=== PATIENT | male | born 1955 | race Caucasian/White ===

== ENCOUNTER 2018-03-15 10:32 | Emergency (ER) | payer OTHER, BC ==
[2018-03-15 10:47] VITALS: TEMP 98.6; BMI 29.5
[2018-03-15 11:26] LABS: BASO % 0.2 % (0-2.0); EOS % 1.4 % (0-4.5); HEMATOCRIT 45.6 % (35.4-49); HEMOGLOBIN 15.7 GM/dl (11.7-16.9); LYMPH % 17.9 % (8-40); MCH 33.3 pg (25.7-33.7); MCHC 34.4 g/dl (32.0-35.9); MEAN PLT VOLUME 7.6 fl (7.5-11.1); NEUT % 71.5 % (42.8-82.8); PLATELET COUNT 266 K/MM3 (134-434); RDW 12.7 % (11.9-15.9); WHITE BLOOD COUNT 5.9 K/mm3 (4.0-10.8)
[2018-03-15 11:31] LABS: ALK PHOS 51 U/L (32-92); ANION GAP 8 (8-16); BILIRUBIN,TOTAL 0.9 mg/dl (0.2-1.0); BLOOD UREA NITROGEN 20 mg/dl (7-18); CALCIUM 9.6 mg/dl (8.4-10.2); CHLORIDE 103 mmol/L (98-107); CO2 23 mmol/L (22-28); CREATININE 0.8 mg/dl (0.6-1.3); GLUCOSE,RANDOM 177 mg/dl (74-106); POTASSIUM 4.9 mmol/L (3.5-5.1); SGOT/AST 19 U/L (10-42); SGPT/ALT 20 U/L (10-40); SODIUM 134 mmol/L (136-145); TOT PROT 6.9 g/dl (6.4-8.3)
--- NOTE | 2018-03-15 13:06 | PDOC ---
History of Present Illness - General Chief Complaint: Chest Pain Stated Complaint: chets pressure,palpitaions,sob,cold sweats x 1 day Time Seen by Provider: 03/15/18 10:34 History Source: Patient Exam Limitations: No Limitations - History of Present Illness Initial Comments: 03/15/18 13:02 CHIEF COMPLAINT: "Yesterday I had chest pain and palpitations." HISTORY OF PRESENT ILLNESS: 62-year-old man with a history of known coronary artery disease status post WA with 12 coronary stents. Patient is followed by Dr. 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 The test results were negative and patient continues on medical management. He gets intermittent chest discomfort as well as palpitations. 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 Asif in the coming weeks. This was scheduled to evaluate his palpitations. Patient presents today with report of having had an episode of chest discomfort and diaphoresis yesterday. He also had some transient palpitations yesterday. He states he has fairly chronic chest discomfort but that is not a change from his prior pattern. He denies syncope. He denies dizziness. He denies diaphoresis today. REVIEW OF SYSTEMS: GENERAL/CONSTITUTIONAL: No fever or chills. No weakness. No weight change. HEAD, EYES, EARS, NOSE AND THROAT: No change in vision. No ear pain or discharge. No sore throat. CARDIOVASCULAR: Positive chest pain, no shortness of breath. Positive palpitations yesterday. RESPIRATORY: No cough, wheezing, or hemoptysis. GASTROINTESTINAL: No nausea, vomiting, diarrhea or constipation. No rectal bleeding. GENITOURINARY: No dysuria, frequency, or change in urination. MUSCULOSKELETAL: No joint or muscle swelling or pain. No neck or back pain. SKIN AND BREASTS: No rash or easy bruising. NEUROLOGIC: No headache, vertigo, loss of consciousness, or loss of sensation. PSYCHIATRIC: No depression or anxiety. ENDOCRINE: No increased thirst. No abnormal weight change. HEMATOLOGIC/LYMPHATIC: No anemia, easy bleeding, or history of blood clots. ALLERGIC/IMMUNOLOGIC: No hives or skin allergy. No latex allergy. Past History - Past Medical History Allergies/Adverse Reactions: Allergies Allergy/AdvReac Type Severity Reaction Status Date / Time amoxicillin [Amoxicillin] Allergy Intermediate Hives Verified 03/15/18 10:34 minocycline [Minocycline] Allergy Intermediate Hives Verified 03/15/18 10:34 Penicillins Allergy Intermediate Hives Verified 03/15/18 10:34 Home Medications: Ambulatory Orders Cholecalciferol (Vitamin D3) [Vitamin D3] 0 unit PO DAILY capsule 11/11/13 Aspirin [Aspirin EC] 81 mg PO DAILY 07/09/14 Clopidogrel Bisulfate [Plavix -] 75 mg PO DAILY 07/09/14 Midamor 5 mg PO DAILY 07/09/14 Potassium Citrate [Urocit-K 10 (NF)] 1,080 mg PO BID 07/09/14 Isosorbide Mononitrate [Imdur -] 30 mg PO DAILY 03/13/16 Glipizide 5 mg PO BID 03/15/18 Insulin Glargine,Hum.rec.anlog [Lantus] 35 unit SQ DAILY 03/15/18 Metformin HCl [Glucophage] 1,000 mg PO DAILY 03/15/18 Ranolazine [Ranexa] 1,000 mg PO BID 03/15/18 Anemia: No Asthma: No Cancer: No Cardiac Disorders: Yes (CAD-DX 2001, [place] X 2"SMALL", 12 coronary stents) CVA: No COPD: No CHF: No Diabetes: Yes (DX 2003-IDDM) GI Disorders: No Disorders: Yes (H/O KIDNEY STONES) HTN: Yes (DX 2001) Hypercholesterolemia: Yes (DX 2001) Kidney Stones: Yes Liver Disease: No Seizures: No Thyroid Disease: No - Surgical History Abdominal Surgery: No Appendectomy: No Cardiac Surgery: Yes (CARDIAC STENTS times [id number]) Cholecystectomy: No Lung Surgery: No Neurologic Surgery: No Orthopedic Surgery: Yes (R KNEE ARTHROSCOPY-2003) - Family Disease History Family Disease History: Heart Disease: Mother - Immunization History Immunization Up to Date: Yes - Suicide/Smoking/Psychosocial Hx Smoking Status: Yes Smoking History: Never smoked Have you smoked in the past 12 months: No Number of Cigarettes Smoked Daily: 0 Cigars Per Day: 1 'Breaking Loose' booklet given: 03/15/18 Hx Alcohol Use: Yes (OCCASIONAL) Drug/Substance Use Hx: No Substance Use Type: None Hx Substance Use Treatment: No *Physical Exam - Vital Signs Last Vital Signs Temp Pulse Resp BP Pulse Ox 98.6 F 78 18 122/78 97 03/15/18 10:33 03/15/18 10:33 03/15/18 10:33 03/15/18 10:33 03/15/18 10:33 - Physical Exam Comments: 03/15/18 13:06 GENERAL: The patient is awake, alert, and fully oriented, in no acute distress. HEAD: Normal with no signs of trauma. EYES: Pupils equal, round and reactive to light, extraocular movements intact, sclera anicteric, conjunctiva clear. ENT: Ears normal, nares patent, oropharynx clear without exudates. Moist mucous membranes. NECK: Normal range of motion, supple without lymphadenopathy, JVD, or masses. LUNGS: Breath sounds equal, clear to auscultation bilaterally. No wheezes, and no crackles. HEART: Regular rate and rhythm, normal S1 and S2 without murmur, rub or gallop. No irregular beats. ABDOMEN: Soft, nontender, normoactive bowel sounds. No guarding, no rebound. No masses. EXTREMITIES: Normal range of motion, no edema. No clubbing or cyanosis. No cords, erythema, or tenderness. NEUROLOGICAL: Cranial nerves II through XII grossly intact. Normal speech, normal gait. PSYCH: Normal mood, normal affect. SKIN: Warm, Dry, normal turgor, no rashes or lesions noted. Heart Score/ECG Review - ECG Impressions Comment:: 03/15/18 13:06 EKG #1) normal sinus rhythm at a rate of 80 bpm. The axis is normal. The intervals are normal. There is borderline J-point elevation throughout most leads. In comparison with prior EKG from 08/30/2008, there is no change. EKG #2) the rhythm is normal sinus rhythm at a rate of 74 bpm. The axis is normal. The intervals are normal. There are no acute ST elevations or depressions. There is mild J-point elevation in almost all of the leads. There is no change from prior tracings. Impression: Normal 12-lead EKG 2 ED Treatment Course - LABORATORY CBC & Chemistry Diagram: 03/15/18 11:07 03/15/18 11:07 - ADDITIONAL ORDERS Additional order review: Laboratory Results 03/15/18 03/15/18 11:07 11:07 Sodium 134 L Potassium 4.9 Chloride 103 Carbon Dioxide 23 Anion Gap 8 BUN 20 H D Creatinine 0.8 Creat Clearance w eGFR > 60 Random Glucose 177 H D Calcium 9.6 Total Bilirubin 0.9 D AST 19 ALT 20 Alkaline Phosphatase 51 Troponin I < 0.03 Total Protein 6.9 Albumin 4.0 03/15/18 11:07 RBC 4.70 MCV 97.0 H MCHC 34.4 RDW 12.7 MPV 7.6 Neutrophils % 71.5 Lymphocytes % 17.9 Monocytes % 9.0 Eosinophils % 1.4 Basophils % 0.2 - RADIOLOGY Radiology Studies Ordered: Category Date Time Status CHEST X-RAY PORTABLE* [RAD] Stat Radiology 03/15/18 10:54 Completed Medical Decision Making - Medical Decision Making 03/15/18 14:43 62-year-old man with a history of known coronary artery disease status post WA and multiple stents. Patient is followed very closely by his feather baler Dr. Christopher Asif at [facility]. He has frequent symptoms and subsequently has frequent evaluations. Dr Asif recently did a nuclear stress test on him last month which was negative. Patient had some symptoms yesterday and decided to come to the ED today for evaluation of some chest discomfort and diaphoresis with palpitations. His physical examination is unremarkable with clear lungs and normal heart tones. His rhythm has been regular on examination, on 2 EKGs, and on the continuous bedside phototypesetting equipment monitor. 2 sets of EKG showed no ischemic changes. 2 sets of cardiac enzymes were also normal. Patient remains asymptomatic. Given the chronicity of his intermittent symptoms, and the normal ED evaluation, patient will referred back to his primary feather baler Dr. Christopher Asif. He was advised if he has any increasing symptoms he should return immediately to the emergency department for reevaluation. He is already scheduled to contact [facility] for Holter monitoring tomorrow. Impression: Nonspecific chest pain and palpitations, negative EKG and enzymes/ cardiac workup. Patient is stable for discharge with follow-up at [facility]. *DC/Admit/Observation/Transfer Diagnosis at time of Disposition: Chest pain Qualifiers: Chest pain type: unspecified Qualified Code(s): R07.9 - Chest pain, unspecified - Discharge Dispostion Disposition: HOME Condition at time of disposition: Stable Decision to Admit order: No - Referrals - Patient Instructions Printed Discharge Instructions: DI for Chest Pain Additional Instructions: You were evaluated today for chest pain and palpitations. Your physical examination was normal. 2 EKGs were normal. 2 sets of cardiac enzymes/ troponins, were normal. Your chest x-ray was also normal. It is unclear the cause of the chest pain. You should follow-up tomorrow to schedule your cardiac tests at [facility] as recommended by Dr. Asif. You should also call Dr. Asif to advise him of your ER evaluation and to arrange for follow-up. If you do develop further symptoms, return immediately to the emergency department for repeat evaluation. - Post Discharge Activity
[2018-03-15 13:39] VITALS: BP 104/67; PULSE 71
--- NOTE | 2018-03-15 14:43 | EKG ---
Test Reason : Blood Pressure : / mmHG Vent. Rate : 074 BPM Atrial Rate : 074 BPM P-R Int : 132 ms QRS Dur : 078 ms QT Int : 384 ms P-R-T Axes : 017 015 020 degrees QTc Int : 426 ms NORMAL SINUS RHYTHM NORMAL ECG WHEN COMPARED WITH ECG OF 15-MAR-2018 10:35, NO SIGNIFICANT CHANGE WAS FOUND Confirmed by MD Sandoval Daniel ([id number]) on 03/15/2018 2:43:12 PM Referred By: LEONIDAS ALFONSO Confirmed By:Wilver Sandoval MD
--- NOTE | 2018-03-15 14:44 | EKG ---
Test Reason : Blood Pressure : / mmHG Vent. Rate : 080 BPM Atrial Rate : 080 BPM P-R Int : 136 ms QRS Dur : 074 ms QT Int : 364 ms P-R-T Axes : 017 012 010 degrees QTc Int : 419 ms NORMAL SINUS RHYTHM NORMAL ECG WHEN COMPARED WITH ECG OF 30-AUG-2008 20:05, NO SIGNIFICANT CHANGE WAS FOUND Confirmed by MD Sandoval Daniel ([id number]) on 03/15/2018 2:44:25 PM Referred By: LEONIDAS ALFONSO Confirmed By:Wilver Sandoval MD
== END 2018-03-15 14:53 | disposition home or self-care (01) ==
LOC: FER 10:32
DX: R07.9 Chest pain, unspecified (principal); Z95.5 Presence of coronary angioplasty implant and graft; I25.2 Old myocardial infarction; I25.10 Atherosclerotic heart disease of native coronary artery without angina pectoris
CPT/HCPCS: 36415; 71045-TC-FY; 80053; 82550; 84484; 85025; 93005; 99283-25

== ENCOUNTER 2019-07-28 09:07 | Emergency (ER) | payer OTHER, BC ==
[2019-07-28 09:10] VITALS: BMI 29.5
--- NOTE | 2019-07-28 09:12 | PDOC ---
History of Present Illness - General Chief Complaint: Pain, Acute Stated Complaint: LOW BACK PAIN Time Seen by Provider: 07/28/19 09:10 - History of Present Illness Initial Comments: Mr. Lind is a 64 y/o male with PMH of CAD s/p 12 stents, DM, lumbar disc hernia , nephrolithiasis presenting today with 1 mo Hx of worsening pressure-like pain in the right hip radiating down the lateral leg and anterior right foot. Pain is worse with standing and movement. Has been unable to sleep due to pain. Saw PCP last week for the pain, was given steroids, which helped initially but has not helped the past two days. Is also taking acetaminophen for pain relief. Denies fever, recent trauma/falls, back pain, urinary/bowel complaints. Also endorses tingling in bilateral hands. Hx of lumbar disc hernia - resolved with steroid injections MRI (2012) - no evidence of hernia or stenosis Surgeries: PCI x 12; kidney stones PCP Dr. Fisher Past History - Past Medical History Allergies/Adverse Reactions: Allergies Allergy/AdvReac Type Severity Reaction Status Date / Time amoxicillin [Amoxicillin] Allergy Intermediate Hives Verified 07/28/19 09:08 minocycline [Minocycline] Allergy Intermediate Hives Verified 07/28/19 09:08 Penicillins Allergy Intermediate Hives Verified 07/28/19 09:08 Home Medications: Ambulatory Orders Aspirin [Aspirin EC] 81 mg PO DAILY 07/09/14 Clopidogrel Bisulfate [Plavix -] 75 mg PO DAILY 07/09/14 Potassium Citrate [Urocit-K 10 (NF)] 1,080 mg PO BID 07/09/14 Insulin Glargine,Hum.rec.anlog [Lantus] 0 unit SQ DAILY 03/15/18 Metformin HCl [Glucophage] 1,000 mg PO DAILY 03/15/18 Ranolazine [Ranexa] 1,000 mg PO BID 03/15/18 Anemia: No Asthma: No Cancer: No Cardiac Disorders: Yes (CAD-DX 2001, [place] X 2"SMALL", 12 coronary stents) CVA: No COPD: No CHF: No Diabetes: Yes (DX 2003-IDDM) GI Disorders: No Disorders: Yes (H/O KIDNEY STONES) HTN: Yes (DX 2001) Hypercholesterolemia: Yes (DX 2001) Kidney Stones: Yes Liver Disease: No Seizures: No Thyroid Disease: No - Surgical History Abdominal Surgery: No Appendectomy: No Cardiac Surgery: Yes (CARDIAC STENTS times [id number]) Cholecystectomy: No Lung Surgery: No Neurologic Surgery: No Orthopedic Surgery: Yes (R KNEE ARTHROSCOPY-2004) - Immunization History Immunization Up to Date: Yes - Psycho Social/Smoking Cessation Hx Smoking Status: Yes Smoking History: Never smoked Have you smoked in the past 12 months: No Number of Cigarettes Smoked Daily: 0 Cigars Per Day: 1 'Breaking Loose' booklet given: 03/15/18 Hx Alcohol Use: Yes (ONCE A MONTH) Drug/Substance Use Hx: No Substance Use Type: None Hx Substance Use Treatment: No Review of Systems - Review of Systems Comments:: GENERAL/CONSTITUTIONAL: No fever or chills. No weakness. HEAD, EYES, EARS, NOSE AND THROAT: No change in vision. No change in hearing. No sore throat._ CARDIOVASCULAR: No chest pain or shortness of breath_ RESPIRATORY: Denies cough, hemoptysis_ GASTROINTESTINAL: No nausea, vomiting, diarrhea or constipation._ GENITOURINARY: No dysuria, frequency, or change in urination._ MUSCULOSKELETAL: Reports right lower extremity pain. Reports intermittent tingling in bilateral hands. Denies neck pain. Denies back pain. SKIN: No rash NEUROLOGIC: No headache, vertigo, loss of consciousness, or change in strength/ sensation. ENDOCRINE: No increased thirst. No abnormal weight change. HEMATOLOGIC/LYMPHATIC: No anemia, easy bleeding, or history of blood clots._ ALLERGIC/IMMUNOLOGIC: No hives or skin allergy._ *Physical Exam - Vital Signs Last Vital Signs Temp Pulse Resp BP Pulse Ox 0/0 L 07/28/19 09:07 - Physical Exam Comments: GENERAL: Awake, alert, and oriented to person/place/time, in no acute distress_ HEAD: No signs of trauma, normocephalic, atraumatic _ EYES: PERRLA, EOMI, sclera anicteric, conjunctiva clear_ ENT: Hearing grossly normal, nares patent, oropharynx clear without exudates. No uvular deviation. Moist mucosa_ NECK: Normal ROM, supple, no lymphadenopathy, JVD, or masses_ LUNGS: No distress, speaks in full sentences, clear to auscultation bilaterally _ HEART: Regular rate and rhythm, normal S1 and S2, no murmurs appreciated, peripheral pulses normal and equal bilaterally._ ABDOMEN: Soft, nontender, normoactive bowel sounds. No guarding, no rebound. No masses_ EXTREMITIES: Upper extremities: 5/5 in the following: bilateral sensation equal, bilateral rug setter [place] strength equal, bilateral flexion/extension of elbows, bilateral flexion/ extension of shoulders. Radial pulses 2+ bilaterally. Lower extremities: TTP right buttocks, lateral RLE. 5/5 in the following: bilateral dorsi/plantar flexion, flexion/extension of the knee, flexion/ extension of the hip. DP pulses 2+ bilaterally. NEUROLOGICAL: Cranial nerves II through XII grossly intact. Normal speech, gait antalgic, no focal sensorimotor deficit. Romberg testing negative. Cerebellar testing negative. SKIN: Warm, Dry, normal turgor, no rashes or lesions noted_ Medical Decision Making - Medical Decision Making 07/28/19 09:12 64M with PMH of CAD, DM, herniated lumbar disc, kidney stones, presenting with 1 month of worsening RLE pain that starts at the right buttocks and radiates down the lateral RLE to the anterior foot. Saw PCP and was prescribed steroids ( 1 dose remaining). Obtain L-spine XR to r/o compression fx. Will give 1 dose of motrin 600 mg here, plan to d/c home with lidocaine patches for pain relief, f/u PCP and neurosurgery/spine. Discharge - Discharge Information Problems reviewed: Yes Clinical Impression/Diagnosis: Right leg pain Condition: Stable - Follow up/Referral Referrals: Jesus Beckford MD [Primary Care Provider] - Bill Vincent MD, [facility] [Staff Physician] - - Patient Discharge Instructions Patient Printed Discharge Instructions: DI for Lumbar Radiculopathy Additional Instructions: Please follow up with your primary care physician for your right leg pain. Please use lidocaine patches (4%) over the counter for your right leg pain. Please continue taking your steroid medications as prescribed by your primary care physician. Please make an appointment with the neuro and spine surgeon Dr. Vincent to follow up your right leg pain. If you experience any new, worsening, or concerning symptoms, including fever, chills, severe back pain, urinary or bowel incontinence, weakness or loss of sensation in the legs, or any other concerns, please return to the emergency department. - Post Discharge Activity
[2019-07-28 09:18] VITALS: BP 125/71; PULSE 81; TEMP 98.2
[2019-07-28] MEDS ORDERED: IBUPROFEN 600 MG TABLET (FP) PO ONE ×2 (09:56→10:02)
--- NOTE | 2019-07-28 10:04 | PDOC ---
Attending Attestation - Resident Resident Name: Abdirahman Thao - ED Attending Attestation I have performed the following: I have examined & evaluated the patient, The case was reviewed & discussed with the resident, I agree w/resident's findings & plan - HPI HPI: 07/28/19 10:00 64-year-old gentleman with history of heart disease on aspirin and Plavix, diabetes, lumbar radiculopathy with disc herniation in the past diagnosed on MRI in 2013 presents now with 1 month of intermittent and atraumatic low back pain. 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 He took Tylenol as he usually does with relief of his pain, but the pain returned. He saw his PCP, Dr. Guevara, about 10 days ago and was prescribed a Medrol Dosepak, which initially relieved his symptoms but it has recurred over the last few days. Now presents with a sharp exacerbation this morning after waking from sleep, again radiating down his right lateral leg and associated with some paresthesias , but no weakness. No bowel or bladder issues. No fevers or chills, no weight loss or night sweats. Prior episode in 2012 required local spinal injection with Dr. Baxter, which completely relieved his symptoms. - Physicial Exam PE: 07/28/19 10:04 Vital signs stable, afebrile Well-appearing and ambulating steadily and comfortably No midline spine tenderness or swelling or rash 5 out of 5 flexion/extension of bilateral hips/knees/ankle/toes, 2+ distal pulses, no objective sensory deficit. - Medical Decision Making 07/28/19 10:05 64-year-old male with nontraumatic low back pain and lumbar radiculopathy symptoms, other than age no red flags on history or physical exam. Check x-ray given last imaging was about 6 years ago Completed steroid course with only temporary relief, given history of diabetes would avoid prolonged or higher dose steroid course Trial of lidocaine patch, single dose of ibuprofen here as he has been instructed to avoid prolonged NSAIDs given he is on aspirin and Plavix needs spine referral, Dr. Baxter no longer with local practice, so will give referral to database marketing specialist. Will likely need MRI imaging for more definitive intervention. He will likely go to Dr. Tabares's office today for imaging/ referral. 07/28/19 10:55 xray with spondylosis but no acute bone injury/abnormality. ambulating more comfortably after ibuprofen and lidocaine patch, sitting with legs crossed in chair. agrees with d/c plan, will go do Raysa's office now and f/u with database marketing specialist. Understands return criteria.
[2019-07-28] MEDS ORDERED: LIDOCAINE 5% TOPICAL PATCH TP ONE (10:07)
[2019-07-28] MEDS ORDERED: LIDOCAINE 5% TOPICAL PATCH ONE (10:10)
== END 2019-07-28 11:11 | disposition home or self-care (01) ==
LOC: FER 09:07
DX: M79.604 Pain in right leg (principal); I25.10 Atherosclerotic heart disease of native coronary artery without angina pectoris; E11.9 Type 2 diabetes mellitus without complications; N20.0 Calculus of kidney; M51.26 Other intervertebral disc displacement, lumbar region; Z95.5 Presence of coronary angioplasty implant and graft
CPT/HCPCS: 72100-TC-FY; 99282-25

== ENCOUNTER 2019-08-17 04:50 | Day surgery (SDC) | payer OTHER, BC ==
[2019-08-07 11:47] VITALS: BMI 29.0
[2019-08-17 07:01] LABS: INR 1.13 (0.83-1.09); PROTHROMBIN TIME (PATIENT) 13.4 SEC (9.7-13.0)
[2019-08-17] MEDS ORDERED: LIDOCAINE HCL 1%, 10 MG/ML (20ML VIAL) ONE (07:21)
[2019-08-17] MEDS ORDERED: methylPREDNISolone ACET (DEPO) 80 MG/1 ML VIAL ONE (07:21)
[2019-08-17] MEDS ORDERED: BUPIVACAINE HCL/PF 0.25% (2.5MG/ML) 10 ML VIAL ONE (07:21)
--- NOTE | 2019-08-17 08:28 | PN ---
Progress Note (short form) - Note Progress Note: NEUROSURGERY Off Eliquis INR 1.13 No reported bleeding issues OK to proceed with EPSI
[2019-08-17] MEDS ORDERED: LIDOCAINE HCL/PF 2% SDV 5ML VIAL ONE (09:09)
[2019-08-17] MEDS ORDERED: PROPOFOL 20 ML ONE (09:10)
[2019-08-17] MEDS ORDERED: LIDOCAINE HCL 1%, 10 MG/ML (20ML VIAL) NR ONE ×2 (09:19→09:20)
[2019-08-17] MEDS ORDERED: methylPREDNISolone ACET (DEPO) 80 MG/1 ML VIAL IJ ONE (09:20)
[2019-08-17] MEDS ORDERED: BUPIVACAINE HCL/PF 0.25% (2.5MG/ML) 10 ML VIAL IJ ONE (09:20)
[2019-08-17 09:48] VITALS: TEMP 97.8
--- NOTE | 2019-08-17 11:21 | OP ---
DATE OF OPERATION: 08/17/2019 PREOPERATIVE DIAGNOSIS: L5-S1 disk herniation with spinal stenosis and lumbar radiculopathy. POSTOPERATIVE DIAGNOSIS: L5-S1 disk herniation with spinal stenosis and lumbar radiculopathy. ATTENDING SURGEON: Erik Najera MD PROCEDURES: 1. L5-S1 epidural steroid injection. 2. Intraoperative fluoroscopy. ANESTHESIA: Local with IV sedation. ANESTHESIOLOGIST: Melody Jimenez MD INDICATIONS: Patient is a 64-year-old male with back pain, lumbar radiculopathy. Because of his intractable symptoms and failure of conservative treatment, he is here for the 2nd injection. Risks of the procedure include, but are not limited to, bleeding, infection, spinal headache, and neurological injury. The 1st injection did help him somewhat. The patient understands the indications for the procedure, procedure in detail, risks and benefits, and alternatives for treatment of his lumbar condition and wishes to proceed. No guarantees are given for a favorable outcome. PROCEDURE IN DETAIL: After patient was taken to the operating room, he was placed in prone position with a pillow under her hips. Lumbar region was cleaned with alcohol and prepped with Betadine. Skin wheal was raised with 5 mL 1% Xylocaine. A 22-gauge spinal needle was inserted under AP and lateral fluoroscopic guidance from the right-sided approach L5-S1 through an intralaminar approach. [id number] technique was utilized, and there was no CSF or blood backflow, 80 mL of Depo-Medrol, 1 mL 0.25% Marcaine were injected. The needle was withdrawn. Sterile bandage was applied. The patient tolerated the procedure well, was turned back into supine position. Moving bilateral lower extremities well. He did not complain of headache. ERIK NAJERA M.D. [id number]
[2019-08-17 13:29] VITALS: BP 128/70; PULSE 80
== END 2019-08-17 11:50 | disposition home or self-care (01) ==
LOC: JASU-SURG 04:50
PROVIDERS: ATTEND Neurological Surgery
PROC: 3E0R33Z Introduction of Anti-inflammatory into Spinal Canal, Percutaneous Approach (ICD-10-PCS; 2019-08-17)
PROC: B01BZZZ Fluoroscopy of Spinal Cord (ICD-10-PCS; 2019-08-17)
PROC: 3E0R3BZ Introduction of Anesthetic Agent into Spinal Canal, Percutaneous Approach (ICD-10-PCS; principal; 2019-08-17 09:00)
DX: M51.17 Intervertebral disc disorders with radiculopathy, lumbosacral region (principal); M48.07 Spinal stenosis, lumbosacral region; I10 Essential (primary) hypertension; E11.9 Type 2 diabetes mellitus without complications; Z79.4 Long term (current) use of insulin; I25.10 Atherosclerotic heart disease of native coronary artery without angina pectoris
CPT/HCPCS: 36415; 76000-TC-FY; 82962; 85610; 85730

== ENCOUNTER 2019-09-07 06:05 | Day surgery (SDC) | payer OTHER, BC ==
[2019-09-07 06:44] LABS: INR 1.12 (0.83-1.09); PROTHROMBIN TIME (PATIENT) 13.2 SEC (9.7-13.0)
[2019-09-07 06:47] LABS: ACTIVATED PTT 31.2 SECONDS (25.2-36.5)
[2019-09-07] MEDS ORDERED: methylPREDNISolone ACET (DEPO) 80 MG/1 ML VIAL ONE (07:15)
[2019-09-07] MEDS ORDERED: BUPIVACAINE HCL/PF 0.25% (2.5MG/ML) 10 ML VIAL ONE (07:15)
[2019-09-07] MEDS ORDERED: LIDOCAINE HCL 1%, 10 MG/ML (20ML VIAL) ONE (07:15)
[2019-09-07] MEDS ORDERED: MIDAZOLAM HCL 2 MG/2 ML SINGLE DOSE VIAL ONE ×2 (07:38)
[2019-09-07] MEDS ORDERED: methylPREDNISolone ACET (DEPO) 80 MG/1 ML VIAL IM ONE (08:32)
[2019-09-07] MEDS ORDERED: BUPIVACAINE HCL/PF 0.25% (2.5MG/ML) 10 ML VIAL IJ ONE (08:32)
[2019-09-07] MEDS ORDERED: LIDOCAINE HCL 1%, 10 MG/ML (20ML VIAL) NR ONE (08:35)
[2019-09-07 08:57] VITALS: PULSE 80
--- NOTE | 2019-09-07 11:00 | OP ---
DATE OF OPERATION: 09/07/2019 PREOPERATIVE DIAGNOSIS: L5-S1 disk herniation and spinal stenosis, lumbar radiculopathy. POSTOPERATIVE DIAGNOSIS: L5-S1 disk herniation and spinal stenosis, lumbar radiculopathy. ATTENDING SURGEON: Erik Najera MD PROCEDURES: 1. Right L5-S1 epidural steroid injection. 2. Intraoperative fluoroscopy. ANESTHESIA: Local with IV sedation. ANESTHESIOLOGIST: Travis Hughes MD INDICATIONS: Patient is a 64-year-old male with intractable back pain, lumbar radiculopathy. Because of intractable symptoms and failure of conservative treatment, he is here for the 2nd epidural steroid injection. The 1st injection helped him partially, and he is here for the 2nd. The risks of the procedure include, but are not limited to, bleeding, infection, spinal headache, and neurological injury. The patient understands the indications for the procedure, procedure in detail, risks and benefits, and alternatives for treatment of his lumbar condition and wish to proceed. No guarantees are given for a favorable outcome. PROCEDURE IN DETAIL: After patient was taken to the operating room, he was placed in a prone position with a pillow under his hips. Lumbar region was cleaned with alcohol and prepped with Betadine. Skin wheal was raised with 5 mL 1% Xylocaine. A 20-gauge spinal needle was inserted under AP and lateral fluoroscopic guidance. From right-sided approach L5-S1, [id number] technique was utilized, and there was no CSF or blood backflow, 80 mL of Depo-Medrol, 1 mL 0.25% Marcaine were injected. Needle was withdrawn. Sterile bandage was applied. The patient tolerated the procedure well and was turned back into supine position. Moving bilateral lower extremities well. He is not complaining of headache. ERIK NAJERA M.D. [id number]
[2019-09-07 11:01] VITALS: BP 142/80; TEMP 98.7
== END 2019-09-07 11:01 | disposition home or self-care (01) ==
LOC: JASU-SURG 06:05
PROVIDERS: ATTEND Neurological Surgery
PROC: 3E0R33Z Introduction of Anti-inflammatory into Spinal Canal, Percutaneous Approach (ICD-10-PCS; 2019-09-07)
PROC: 3E0R3BZ Introduction of Anesthetic Agent into Spinal Canal, Percutaneous Approach (ICD-10-PCS; principal; 2019-09-07 08:00)
DX: M51.17 Intervertebral disc disorders with radiculopathy, lumbosacral region (principal); M48.07 Spinal stenosis, lumbosacral region; E11.9 Type 2 diabetes mellitus without complications; Z79.84 Long term (current) use of oral hypoglycemic drugs
CPT/HCPCS: 36415; 76000-TC-FY; 82962; 85610; 85730